=== PATIENT | female | born 1975 | race Caucasian/White ===

== ENCOUNTER 2022-09-13 15:36 | Outpatient (CLI) | payer OTHER | END 2022-09-13 15:37 | disposition home or self-care (01) | LOC: TBSIIMAG 15:36 | PROVIDERS: ATTEND Physician Assistant Surgical | DX: M54.50 Low back pain, unspecified (principal); M47.816 Spondylosis without myelopathy or radiculopathy, lumbar region | CPT/HCPCS: 72100 ==